=== PATIENT | male | born 1955 | race Caucasian/White ===

== ENCOUNTER 2019-05-05 05:51 | Emergency (ER) | payer OTHER ==
[2019-05-05 05:57] VITALS: TEMP 97.3
[2019-05-05 06:04] LABS: BASO # 0.1 (0.0-0.2); BASO % 0.9 % (0.0-2.0); EOS # 0.1 (0.0-0.7); EOS % 1.4 % (0-4.0); GRAN # 4.7 (1.4-6.5); GRAN % 60.3 % (42.2-75.2); HEMATOCRIT 42.8 % (42.0-52.0); LYMPH # 2.2 (1.2-3.4); LYMPH % 28.8 % (20.0-51.0); MEAN CELL VOLUME 98 fl (80.0-100.0); MEAN CORPUSCULAR HEMOGLOBIN 32 pg (27.0-31.0); MEAN CORPUSCULAR HGB CONC 33 g/dl (33.0-37.0); MEAN PLATELET VOLUME 8.7 fl (7.4-10.4); MONO # 0.6 (0.1-0.6); MONO % 8.1 % (1.7-9.3); PLATELET COUNT 239 K/mm3 (130-400); RED BLOOD COUNT 4.35 M/mm3 (4.20-5.60); REDCELL DISTRIBUTION WIDTH-CV 12.2 % (11.5-14.5)
[2019-05-05 06:12] LABS: ALBUMIN 3.7 gm/dL (3.5-5.0); BILIRUBIN,TOTAL 0.5 mg/dL (0.0-1.0); CALCIUM 8.8 mg/dL (8.4-10.2); CREATININE, serum 0.91 (0.66-1.25); TOTAL PROTEIN 6.5 gm/dL (6.4-8.2)
[2019-05-05 06:23] LABS: TROPONIN-I 0.033 ng/mL (0.000-0.035)
[2019-05-05 06:45] VITALS: BP 160/75; PULSE 80
== END 2019-05-05 07:00 | disposition short-term general hospital (02) ==
LOC: COL.ER 05:51
PROVIDERS: Emergency Medicine
DX: I21.4 Non-ST elevation (NSTEMI) myocardial infarction (principal); Z79.02 Long term (current) use of antithrombotics/antiplatelets; Z79.82 Long term (current) use of aspirin
CPT/HCPCS: J1170; J1265; J1644; J2270; J2405; J3101; J7030; J7060

== ENCOUNTER 2019-07-24 13:23 | Outpatient (RCR) | payer OTHER | END 2019-07-24 14:00 | disposition home or self-care (01) | LOC: COL.CR 13:23 | DX: I21.3 ST elevation (STEMI) myocardial infarction of unspecified site (principal); I25.10 Atherosclerotic heart disease of native coronary artery without angina pectoris; I10 Essential (primary) hypertension; E78.5 Hyperlipidemia, unspecified; Z85.72 Personal history of non-Hodgkin lymphomas; I34.0 Nonrheumatic mitral (valve) insufficiency ==

== ENCOUNTER → 2021-06-07 | Outpatient (CLI) | payer BC | LOC: COL.RAD 07:53 | DX: Z13.6 Encounter for screening for cardiovascular disorders (principal); Z87.891 Personal history of nicotine dependence ==